=== PATIENT | female | born 1960 | race Caucasian/White ===

== ENCOUNTER 2016-10-03 12:30 | Emergency (ER) | payer OTHER ==
[~2016-10-03] VITALS: Wt 59.0 kg
[~2016-10-03 12:30] MED LIST: NKHM; SYNTHROID0.025 MG PO; XANAX1 MG PO
[2016-10-03 12:39] VITALS: BP 114/85
[2016-10-03] MEDS ORDERED: POLYMYXIN-B/TRI10 ML OPH (12:39)
[2016-10-03] MEDS ORDERED: MEDROL DOSEPAK4 MG PO (13:08)
[2016-10-03] MEDS ORDERED: ERYTHROMYCIN OPH1 GM OPH (13:08)
== END 2016-10-03 13:17 | disposition home or self-care (01) ==
LOC: ED 12:30
DX: H10.9 Unspecified conjunctivitis (principal); F17.200 Nicotine dependence, unspecified, uncomplicated

== ENCOUNTER 2017-06-13 15:03 | Emergency (ER) | payer OTHER ==
[~2017-06-13] VITALS: Wt 59.0 kg
[~2017-06-13 15:03] MED LIST changes: +ERYTHROMYCIN OPH1 GM OPH; +MEDROL DOSEPAK4 MG PO; +POLYMYXIN-B/TRI10 ML OPH
[2017-06-13 15:13] VITALS: BP 113/66
[2017-06-13] MEDS ORDERED: TEMAZEPAM30 MG PO (15:13)
[2017-06-13 15:29] LABS: HEMATOCRIT 42.5 % (37.0-47.0); HEMOGLOBIN 14.4 g/dl (12.0-16.0); MEAN CORPUSCULAR HGB 31.2 pg (27.0-31.0); MEAN CORPUSCULAR HGB CONC 33.9 g/dl (33.0-37.0); MEAN PLATELET VOLUME 10.4 fl (9.6-12.3); PLATELET COUNT AUTOMATED 190 10*3/uL (130-400); RED BLOOD COUNT 4.62 10*6/uL (4.10-5.10); WHITE BLOOD COUNT 9.4 10*3/uL (4.8-10.8)
[2017-06-13 15:46] LABS: ALBUMIN 3.7 gm/dl (3.1-4.5); ALKALINE PHOSPHATASE 54 U/L (45-117); BUN 12 mg/dl (7-24); CHLORIDE 105 mmol/L (98-107); CREATININE 0.77 mg/dL (0.55-1.02); POTASSIUM 4.2 mmol/L (3.5-5.1); SGOT/AST 18 IU/L (3-35); SGPT/ALT 22 U/L (12-78); SODIUM 140 mmol/L (136-145); TOTAL PROTEIN 7.4 gm/dL (6.4-8.2)
[2017-06-13 15:48] LABS: TROPONIN I < 0.015 ng/ml (<0.045)
[2017-06-13 15:55] LABS: BASOPHILS 1 % (0-1); TOTAL CELLS COUNTED 100 #CELLS
[2017-06-13 15:56] LABS: PLATELET SUFFICIENCY NORMAL (NORMAL)
[2017-06-13] MEDS ORDERED: MECLIZINE HCL25 M2 PO (17:35)
[2017-06-13] MEDS ORDERED: ZOFRAN4 MG PO (17:35)
== END 2017-06-13 17:40 | disposition home or self-care (01) ==
LOC: ED 15:03
PROVIDERS: Nurse Practitioner Family
DX: R42 Dizziness and giddiness (principal); F17.200 Nicotine dependence, unspecified, uncomplicated; Z90.710 Acquired absence of both cervix and uterus; Z79.899 Other long term (current) drug therapy; Z85.3 Personal history of malignant neoplasm of breast